=== PATIENT | male | born 1935 | race Caucasian/White ===

== ENCOUNTER 2019-11-30 06:54 | Day surgery (SDC) | payer OTHER ==
[2019-11-30 07:57] VITALS: BMI 24.4
[2019-11-30] MEDS ORDERED: TETRACAINE 0.5% OPHTH SOLN 2 ML BOTTLE ONE (09:27)
[2019-11-30] MEDS ORDERED: LIDOCAINE 1%/EPI 1:100000 (20 ML MULTI DOSE VIAL) ONE (09:27)
[2019-11-30] MEDS ORDERED: ERYTHROMYCIN 0.5% OPHTHALMIC OINTMENT 3.5 GM TUBE ONE (09:27)
[2019-11-30] MEDS ORDERED: POVIDONE-IODINE 5% OPHTHALMIC PREP 30 ML SOLUTION ONE (09:27)
[2019-11-30] MEDS ORDERED: BUPIVACAINE HCL/PF 0.5% (5MG/ML) 10 ML VIAL ONE (09:27)
[2019-11-30] MEDS ORDERED: PROPOFOL 20 ML ONE ×2 (09:42→10:38)
[2019-11-30] MEDS ORDERED: MIDAZOLAM HCL 2 MG/2 ML SINGLE DOSE VIAL ONE (09:42)
[2019-11-30] MEDS ORDERED: ceFAZolin SODIUM 1 GM VIAL ONE (10:02)
[2019-11-30] MEDS ORDERED: BACITRACIN 3.5 GM OPTHALMIC OINT TUBE ONE (10:03)
[2019-11-30] MEDS ORDERED: ONDANSETRON 4 MG/2 ML VIAL ONE (11:01)
[2019-11-30] MEDS ORDERED: oxyCODONE HCL 5 MG TABLET PO PRN (11:16)
[2019-11-30] MEDS ORDERED: ONDANSETRON 4 MG/2 ML VIAL IVPUSH PRN (11:16)
[2019-11-30] MEDS ORDERED: ACETAMINOPHEN 1000 MG/100 ML VIAL (NON FORMULARY) IVPB ONE (11:17)
[2019-11-30] MEDS ORDERED: LACTATED RINGERS SOLUTION 1,000 ML IV SCH (11:30)
[2019-11-30 12:50] VITALS: TEMP 97.8
[2019-11-30 12:55] VITALS: BP 135/56; PULSE 68
--- NOTE | 2019-11-30 13:11 | OP ---
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 PROCEDURE: 1. Lateral tarsal strip, right lower lid. 2. Medial canthal tendon plication, right lower lid. 3. Transconjunctival plication of retractors, right lower lid. 4. Partial-thickness excision of orbicularis flap, right lower lid. SURGEON: Lauren Ahn MD ANESTHESIA: Local with sedation. COMPLICATIONS: None. ESTIMATED BLOOD LOSS: 3 mL OPERATIVE REPORT: Patient was brought to the operating room and placed on the operating room table. Vital signs were monitored by Anesthesia. Tetracaine was placed in both eyes. Lateral canthal line was marked in the right lateral canthus. A curvilinear line was marked over the medial canthus and then the lid was grasped and the punctum was seen to move just beyond the medial limbus and therefore a medial canthal tendon plication was added. After a timeout a 50/50 mixture of 2% Xylocaine with 1:100,000 epinephrine and 0.5% Marcaine was injected subcutaneously to the right lower canthus down to periosteum, lateral third of the upper lid, and subcutaneously in the medial portion of the eyelid, as well as subconjunctivally below the tarsus for a total of 3 to 4 mL. Massage was applied for hemostasis. Patient was prepped and draped in the usual sterile fashion exposing both eyes. The left eye was closed manually. A curvilinear incision was made over the left medial canthal tendon extending into the medial portion of the lower lid. Dissection was carried down over the anterolateral and medial canthal tendon and tarsal tendinous junction, exposing these structures and the tarsal tendinous junction, or tarsus, was secured, tendon medially to the anterior lateral to medial canthal tendon, just passing underneath it. This was tied so that it would not distract the lid from the globe so that it would stabilize the punctum with position just nasal to the medial limbus. This was tied. Lateral canthal incision was made at the right lateral canthus and this was incised down to periosteum with the Karnes needle. The inferior sandra of the left canthal tendon was from the orbital rim with sharp dissection. It was overlapped, having already plicated the medial canthal tendon, marked with the marking pen and divided between to an anterior and posterior lamella. The anterior lamella was excised. Posterior lamella was denuded of epithelium posteriorly and superiorly, released from the retractors inferiorly, creating a lateral tarsal strip and this lateral tarsal strip was secured with double-arm 5-0 Prolene to the internal surface of the orbital rim. The Prolene was reinforced with two 6-0 Vicryl lasso sutures and once the position of the canthus was determined to be appropriate, this Prolene was not tied. A 4-0 silk suture was passed through the central lid margin and used as a traction suture. The lid was everted over Demares retractor. Transconjunctival incision was made through conjunctiva and retractors, exposing the post orbicularis surface and dissected down along the post orbicularis surface, releasing any septal attachments. The tarsus was then from the pretarsal orbicularis with the Karnes needle. Partial-thickness orbicularis flap was dissected off at the inferior tarsal border and removed and then the retractors were plicated to the anterior inferior tarsus with 3 interrupted 6-0 Vicryl sutures closing the retractors, plicating them and closing the conjunctiva at the same time. The lateral canthal angle was reformed with a 5-0 chromic buried to the veras line at the upper and lower lid. The Prolene was now tied with appropriate tension, tightening the lid. Lateral to this, the excess tarsal strip was secured with the 5-0 chromic. The muscle layer was closed with 6-0 Vicryl and the skin with running 6-0 plain suture and the medial canthal incision was closed with 6-0 plain suture running and interrupted. Erythromycin ointment was placed in the eye and on sutures of the medial canthus and lateral canthus. The traction stitch was removed and the patient was taken to the recovery room in stable condition. LAUREN AHN M.D. [id number]
== END 2019-11-30 13:00 ==
LOC: FASU 06:54
PROVIDERS: ATTEND Ophthalmology
PROC: 08SQ0ZZ Reposition Right Lower Eyelid, Open Approach (ICD-10-PCS; principal; 2019-11-30 10:18)
DX: H02.032 Senile entropion of right lower eyelid (principal)
CPT/HCPCS: 94760; J0131